=== PATIENT | female | born 1995 | race Caucasian/White ===

== ENCOUNTER → 2017-01-08 | Outpatient (CLI) | payer BC, OTHER ==
[~2017-01-08] MED LIST: KETOPROFEN PO; RITALIN
--- NOTE | ~2017-01-08 | CR58 ---
[facility] A Service of [facility] & [facility] RADIOLOGY TEXT RESULTS PATIENT: BIA SIMMS LOCATION: [facility] : [birth year] UNIT #: [id number] AGE: [address]: Becki FloresP SEX: F ORDER DR: [id number] [facility] [address] [place], [place] [address] [id number] O MR#: [id number] Acc #: [id number] NAME: BIA SIMMS : 1995 SEX: F STUDY DATE/TIME: 01/08/2017 17:23 UNIT: [facility] ROOM: STUDY DESCRIPTION: CR Cervical Spine 2 or 3 Views Attending Physician: Becki Flores A.P.R.N. Ordering Physician: Becki Flores A.P.R.N. Primary Care Physician: Siddhartha Garcia M.D. MEDICAL IMAGING REPORT This report is preliminary unless electronic signature is present EXAM Cervical spine 3 views INDICATIONS Neck pain for 2 weeks. COMPARISON STUDIES No comparisons. FINDINGS Vertebral body heights, alignment and disc spaces are maintained. Odontoid intact and the lateral masses are well aligned. IMPRESSION Negative. Dictated by... Meet Cunningham M.D. THIS IS AN ELECTRONICALLY VERIFIED REPORT Meet Cunningham M.D. at 01/13/2017 7:28 AM ARS/gus TD: 01/08/2017 22:54 JOB #: [id number] MEDICAL IMAGING REPORT Page 1 of 1 COPY
--- NOTE | ~2017-01-08 | CR63 ---
[facility] A Service of [facility] & [facility] RADIOLOGY TEXT RESULTS PATIENT: BIA SIMMS LOCATION: [facility] : 95 UNIT #: [id number] AGE: [address]: Becki Flores [employer] SEX: F ORDER DR: [id number] [facility] [address] [place], [place] [address] [id number] O MR#: [id number] Acc #: [id number] NAME: BIA SIMMS : 1995 SEX: F STUDY DATE/TIME: 01/08/2017 17:20 UNIT: [facility] ROOM: STUDY DESCRIPTION: CR Chest 2 View Attending Physician: Becki Flores A.P.R.N. Ordering Physician: Becki Flores A.P.R.N. Primary Care Physician: Siddhartha Garcia M.D. MEDICAL IMAGING REPORT This report is preliminary unless electronic signature is present EXAM PA and lateral chest INDICATIONS Chest pain for 2 weeks. Comparison 07/18/2016 FINDINGS The lungs are well expanded and clear. Heart size is normal. Visualized osseous structures are unremarkable. IMPRESSION Negative chest Dictated by... Meet Cunningham M.D. THIS IS AN ELECTRONICALLY VERIFIED REPORT Meet Cunningham M.D. at 01/13/2017 7:28 AM KATHY/adry TD: 01/08/2017 22:58 JOB #: [id number] MEDICAL IMAGING REPORT Page 1 of 1 COPY
== END | disposition home or self-care (01) ==
LOC: CRAD 16:32
DX: R07.9 Chest pain, unspecified (principal); M79.602 Pain in left arm; M79.601 Pain in right arm
CPT/HCPCS: 71020; 72040